=== PATIENT | male | born 1975 | race Caucasian/White ===

== ENCOUNTER 2020-11-30 12:10 | Emergency (ER) | payer BC ==
[~2020-11-30] VITALS: Ht 190.5 cm; Wt 102.2 kg
[2020-11-30] MEDS ORDERED: LOSARTAN POTASS25 MG PO (12:42)
[2020-11-30] MEDS ORDERED: LEXAPRO10 MG PO (12:43)
[2020-11-30] MEDS ORDERED: VITAMIN B COMP1 EACH PO (12:43)
[2020-11-30] MEDS ORDERED: FISH OIL 1,2001 EAC7 PO (12:44)
[2020-11-30] MEDS ORDERED: VITAMIN K100 MCG PO (12:44)
[2020-11-30] MEDS ORDERED: KELP150 MC1 PO (12:45)
[2020-11-30] MEDS ORDERED: VITAMIN C100 MG PO (12:45)
[2020-11-30] MEDS ORDERED: VITAMIN D3 COM1 EACH PO (12:46)
[2020-11-30] MEDS ORDERED: DHEA25 M1 PO (12:46)
[2020-11-30] MEDS ORDERED: PENICILLIN V P500 MG PO (13:11)
[2020-11-30] MEDS ORDERED: HYDROCODON-ACE1 EA10 PO (13:11)
== END 2020-11-30 13:41 | disposition home or self-care (01) ==
LOC: ED 12:10
DX: K08.89 Other specified disorders of teeth and supporting structures (principal); I10 Essential (primary) hypertension; E11.9 Type 2 diabetes mellitus without complications; Z88.5 Allergy status to narcotic agent; Z79.899 Other long term (current) drug therapy
CPT/HCPCS: 99282; A9270